=== PATIENT | female | born 1970 | race Caucasian/White ===

== ENCOUNTER 2021-04-13 04:31 | Day surgery (SDC) | payer OTHER ==
[2021-04-11 17:04] VITALS: BMI 29.5
[2021-04-13 09:16] VITALS: TEMP 97.8
[2021-04-13 09:53] VITALS: BP 119/71; PULSE 67
== END 2021-04-13 10:05 | disposition home or self-care (01) ==
LOC: JASU-ENDO 04:31
PROVIDERS: ATTEND Internal Medicine Gastroenterology
PROC: 0DBL8ZX Excision of Transverse Colon, Via Natural or Artificial Opening Endoscopic, Diagnostic (ICD-10-PCS; principal; 2021-04-13 08:45)
DX: D12.9 Benign neoplasm of anus and anal canal (principal); K63.5 Polyp of colon; K57.30 Diverticulosis of large intestine without perforation or abscess without bleeding; K64.8 Other hemorrhoids; K64.4 Residual hemorrhoidal skin tags; R19.4 Change in bowel habit; K30 Functional dyspepsia
CPT/HCPCS: 88305-TC

== ENCOUNTER 2021-04-25 04:54 | Day surgery (SDC) | payer OTHER ==
[2021-04-21 16:34] VITALS: BMI 29.5
[2021-04-25 11:05] VITALS: TEMP 97.1
[2021-04-25 11:34] VITALS: BP 116/84; PULSE 72
== END 2021-04-25 11:35 | disposition home or self-care (01) ==
LOC: JASU-ENDO 04:54
PROVIDERS: ATTEND Internal Medicine Gastroenterology
PROC: 0DB78ZX Excision of Stomach, Pylorus, Via Natural or Artificial Opening Endoscopic, Diagnostic (ICD-10-PCS; principal; 2021-04-25 10:00)
DX: K29.50 Unspecified chronic gastritis without bleeding (principal); R10.13 Epigastric pain
CPT/HCPCS: 88305-TC; 88342-TC